=== PATIENT | male | born 1945 | race Native Hawaiian/Other Pacific Islander ===

== ENCOUNTER 2018-05-18 09:25 | Day surgery (SDC) | payer MEDICARE ==
[2016-04-08 10:20] VITALS: BMI 25.0
[2018-05-18 10:25] VITALS: PULSE 80
[2018-05-18] MEDS ORDERED: Lidocaine/Epinephrine 1% 1:100000 10 ML IJ ONE (11:09)
--- NOTE | 2018-05-18 12:25 | PCM.SURG1 ---
Surgeon's Initial Post Op Note - Surgeon's Notes Surgeon: Dr. Laurie Miller Cytology Manager: Ruth Ann Morejon, PGY2 Type of Anesthesia: Local Pre-Operative Diagnosis: left posterior auricular mass, left groin lesions x2 Operative Findings: fatty left posterior subcutaneous mass. superficial black skin lesions x2 of the left groin. adequate hemostasis obtained at the end of the case with pressure Post-Operative Diagnosis: same Operation Performed: excisional biopsy of left posterior auricular mass. excisional biopsy of left groin lesions x2 Specimen/Specimens Removed: left posteror auricular mass. left lateral skin lesion. left medial skin lesion Estimated Blood Loss: EBL {In ML}: 3 Blood Products Given: N/A Drains Used: No Drains Post-Op Condition: Fair Date of Surgery/Procedure: 05/18/18 Time of Surgery/Procedure: 11:15
[2018-05-18 12:40] VITALS: BP 116/59; RESP 16; TEMP 97.6; O2SAT 96
[2018-05-18] MEDS ORDERED: Tramadol 25 mg PO PRN (12:43)
--- NOTE | 2018-05-24 06:34 | OP ---
PROCEDURE DATE: 05/18/2018 PREOPERATIVE DIAGNOSES: Subcutaneous posterior auricular mass, left and two skin lesions of the left groin. POSTOPERATIVE DIAGNOSES: Left posterior auricular subcutaneous mass and two superficial skin lesions of the left groin. SURGEON: Herberth Miller MD RESIDENTIAL [facility]WN SPECIALIST: Ruth Ann Morejon, PGY-2 OPERATIVE FINDINGS: Two superficial skin masses of the left groin and one subcutaneous fatty tumor of the left posterior auricular area. DESCRIPTION OF PROCEDURE: The patient was brought to the room in stretcher and transferred to the table in supine position. No general or IV sedation anesthesia were given, but Anesthesia was standby due to the patient's comorbidities. Time-out was performed, the patient was prepped and draped in the sterile fashion. Attention was first turned to the posterior auricular lesion on the left. Local anesthesia was infiltrated into the skin. A #15 blade was then used to incise the skin in an elliptical pattern around the lesion. The subcutaneous tissue was then dissected with both sharp and blunt dissection. The entire circumference of the mass was freed up from its attachment and the mass was removed from the incision en bloc. The suture was closed with Vicryl and Monocryl and Steri-Strips were placed over the top. Full hemostasis was obtained with pressure prior to closure. Attention was then turned to the left groin, local anesthesia was injected into the tissue, elliptical excision of the lesions and surrounding subcutaneous tissue was performed with a new #15 blade. An incision was made through the dermis into the subcutaneous fat and then dissected up to the base and then the medial lesions and were handed off the table. Bleeding was then controlled with pressure and the wounds were closed with Vicryl and Monocryl. The patient tolerated the procedure well. Counts were correct. No complications. Estimated blood loss was 3 to 5 mL. The patient was transferred back over to the stretcher without issue and escorted to Same Day Surgery in good condition. Ruth Ann Morejon DO Herberth Miller MD [facility] # [id number]
== END 2018-05-18 12:44 | disposition home or self-care (01) ==
LOC: C.SDS 09:25
PROVIDERS: ATTEND Surgery
DX: L82.1 Other seborrheic keratosis (principal)

== ENCOUNTER 2018-10-25 08:09 | Outpatient (CLI) | payer MEDICARE | END 2018-10-25 08:10 | disposition home or self-care (01) | LOC: C.LAB 08:09 | DX: R10.13 Epigastric pain (principal); Z86.010 Personal history of colon polyps ==

== ENCOUNTER 2018-10-25 08:13 | Outpatient (CLI) | payer MEDICARE | END 2018-10-25 08:14 | disposition home or self-care (01) | LOC: C.LAB 08:13 | DX: N40.1 Benign prostatic hyperplasia with lower urinary tract symptoms (principal) ==